=== PATIENT | female | born 1980 | race Caucasian/White ===

== ENCOUNTER 2022-07-19 23:51 | Emergency (ER) | payer MEDICAID ==
[~2022-07-19] VITALS: Ht 152.4 cm; Wt 76.7 kg
[2022-07-20 01:22] LABS: BILIRUBIN,URINE SMALL (NEGATIVE); COLOR,URINE YELLOW (YELLOW); LEUKOCYTE ESTERASE ,URINE SMALL (NEGATIVE); NITRITE, URINE NEGATIVE (NEGATIVE); PROTEIN,URINE 100 mg/dl (NEGATIVE); UGLUCOSE NEGATIVE (NEGATIVE); UROBILINOGEN,URINE 0.2 EU/dL (0.2)
[2022-07-20 01:23] LABS: BACTERIA,URINE Few /HPF (None Seen)
[2022-07-20 01:24] LABS: SQUAMOUS EPITHELIAL CELL,UR Few /HPF (None Seen)
[2022-07-20 01:33] LABS: BASOPHILS # (AUTO) 0.1 K/uL (0.0-0.2); BASOPHILS % (AUTO) 1.2 % (0.0-2.0); EOSINOPHILS % (AUTO) 1.1 % (0.0-6.0); HEMATOCRIT 41 % (33-45); HEMOGLOBIN 13.4 g/dL (11.5-14.8); LYMPHOCYTES # (AUTO) 3.6 K/uL (0.8-4.8); LYMPHOCYTES % (AUTO) 35.2 % (20.0-44.0); MEAN CORPUSCULAR HGB CONC 33 g/dl (31.0-36.0); MEAN CORPUSCULAR VOLUME 87 fL (82-100); MONOCYTES # (AUTO) 0.7 K/uL (0.1-1.30); MONOCYTES % (AUTO) 6.5 % (2.0-12.0); NEUTROPHILS # (AUTO) 5.7 K/uL (1.8-8.9); PLATELET COUNT (AUTO) 234 K/uL (150-450); RED BLOOD CELL COUNT(AUTO) 4.72 MIL/uL (4.0-5.2); WHITE BLOOD COUNT (AUTO) 10.2 K/uL (4.3-11.0)
[2022-07-20 01:51] LABS: ALBUMIN 3.8 g/dL (3.4-5.0); BILIRUBIN,DIRECT 0.1 mg/dL (0.0-0.2); BILIRUBIN,TOTAL 0.3 mg/dL (0.2-1.0); CALCIUM, SERUM 8.5 mg/dL (8.5-10.1); CREATININE 0.8 mg/dL (0.6-1.3); POTASSIUM 3.8 mmol/L (3.5-5.1)
--- NOTE | 2022-07-20 02:16 | NUR ---
US TECH AT BED SIDE
--- NOTE | 2022-07-20 02:36 | NUR ---
Patient discharged to home in stable condition. Written and verbal after care instructions given. Patient verbalizes understanding of instruction.
[2022-07-20 02:38] VITALS: BP 121/68
== END 2022-07-20 02:39 | disposition home or self-care (01) ==
LOC: ER 23:54
DX: O20.0 Threatened abortion (principal); Z3A.00 Weeks of gestation of pregnancy not specified
CPT/HCPCS: 36415; 76856-TC; 80048-TC; 80076-TC; 81001; 84702-TC; 85025-TC; 86850-TC

== ENCOUNTER 2024-06-14 06:43 | Emergency (ER) | payer MEDICAID ==
[~2024-06-14] VITALS: Ht 154.9 cm; Wt 72.6 kg
[2024-06-14] MEDS ORDERED: ONDANSETRON HCL/PF 4 MG/2 ML VIAL ONE (07:06)
[2024-06-14] MEDS ORDERED: MORPHINE SULFATE INJ 4 MG/ML DISP.SYRIN ONE (07:07)
[2024-06-14 07:22] LABS: BASOPHILS % (AUTO) 0.6 % (0.0-2.0); EOSINOPHILS # (AUTO) 0.1 K/uL (0.0-0.7); EOSINOPHILS % (AUTO) 1.5 % (0.0-6.0); HEMATOCRIT 41 % (33-45); LYMPHOCYTES # (AUTO) 2.3 K/uL (0.8-4.8); LYMPHOCYTES % (AUTO) 35.1 % (20.0-44.0); MEAN CORPUSCULAR HEMOGLOBIN 26 PG (26.0-33.0); MEAN CORPUSCULAR HGB CONC 32 g/dl (31.0-36.0); MEAN CORPUSCULAR VOLUME 81 fL (82-100); MONOCYTES # (AUTO) 0.5 K/uL (0.1-1.30); MONOCYTES % (AUTO) 7.4 % (2.0-12.0); NEUTROPHILS # (AUTO) 3.7 K/uL (1.8-8.9); NEUTROPHILS % (AUTO) 55.4 % (43.0-81.0); PLATELET COUNT (AUTO) 331 K/uL (150-450); RED CELL DISTRIBUTION WIDTH 15.9 % (11.5-15.0); WHITE BLOOD COUNT (AUTO) 6.7 K/uL (4.3-11.0)
[2024-06-14] MEDS: MORPHINE SULFATE INJ 2 MG/ML DISP.SYRIN IV ONE (07:24)
[2024-06-14] MEDS: ONDANSETRON HCL/PF - ER 4 MG/2 ML VIAL IV ONE (07:25)
[2024-06-14 08:04] LABS: ALBUMIN 4.1 g/dL (3.4-5.0); BILIRUBIN,TOTAL 0.4 mg/dL (0.2-1.0); CALCIUM, SERUM 9.3 mg/dL (8.5-10.1); CREATININE 0.8 mg/dL (0.6-1.3); POTASSIUM 3.9 mmol/L (3.5-5.1); TOTAL PROTEIN, SERUM 8.3 g/dL (6.4-8.2)
[2024-06-14 08:32] LABS: APPEARANCE,URINE CLOUDY (CLEAR); BILIRUBIN,URINE 1+ (NEGATIVE); BLOOD, URINE NEGATIVE Ery/uL (NEGATIVE); COLOR,URINE YELLOW (YELLOW); KETONES,URINE NEGATIVE (NEGATIVE); LEUKOCYTE ESTERASE ,URINE 1+ (NEGATIVE); NITRITE, URINE NEGATIVE (NEGATIVE); PROTEIN,URINE TRACE mg/dl (NEGATIVE); UGLUCOSE NEGATIVE (NEGATIVE); UROBILINOGEN,URINE 0.2 EU/dL (0.2)
[2024-06-14 08:33] LABS: ADD URINE CULTURE YES; BACTERIA,URINE Few /HPF (None Seen); PREGNANCY TEST URINE QUAL NEGATIVE (NEGATIVE); SQUAMOUS EPITHELIAL CELL,UR Rare /HPF (None Seen)
[2024-06-14] MEDS ORDERED: IOHEXOL-300 100 ML VIAL IV ONE (09:43)
[2024-06-14] MEDS ORDERED: IV NS 0.9% 250 ML IV ONE (09:43)
[2024-06-14] MEDS ORDERED: CT SWABBABLE VALVE TRANS SET 1 EA INFUS.SET MC ONE (09:43)
[2024-06-14] MEDS ORDERED: CEPH500C2 PO (10:59)
[2024-06-14] MEDS ORDERED: IBUP-1490 PO (10:59)
[2024-06-14] MEDS ORDERED: KETOROLAC TROMETHAMINE INJ 30 MG/ML VIAL ONE (11:14)
[2024-06-14] MEDS ORDERED: CEPHALEXIN MONOHYDRATE 500 MG CAPSULE PO ONE (11:15)
[2024-06-14] MEDS: CEPHALEXIN MONOHYDRATE 500 MG CAPSULE PO ONE (11:19)
[2024-06-14] MEDS: KETOROLAC TROMETHAMINE INJ 30 MG/ML VIAL IV ONE (11:24)
[2024-06-14 12:51] VITALS: BP 118/72; TEMP 97.8; O2SAT 98
[2024-06-15] MEDS ORDERED: HYDR-4303 PO (11:09)
== END 2024-06-14 12:51 | disposition home or self-care (01) ==
LOC: ER 06:50
DX: K80.20 Calculus of gallbladder without cholecystitis without obstruction (principal); D25.9 Leiomyoma of uterus, unspecified; R82.81 Pyuria; R10.31 Right lower quadrant pain; R10.11 Right upper quadrant pain
CPT/HCPCS: 99285; 74177; 96374; 76856; 96375; 85025; 87086; 84703; 81001; 36415; 80053; J2270; J1885; J2405 ×2; J7050; Q9967

== ENCOUNTER 2024-06-15 09:44 | Emergency (ER) | payer MEDICAID ==
[~2024-06-15] VITALS: Ht 152.4 cm; Wt 70.3 kg
[~2024-06-15 09:44] MED LIST: CEPH500C2 PO; IBUP-1490 PO
[2024-06-15] MEDS: IV NS 0.9% 1,000 ML BAG IV ONE (10:12)
[2024-06-15 10:22] LABS: BASOPHILS # (AUTO) 0.1 K/uL (0.0-0.2); EOSINOPHILS # (AUTO) 0.1 K/uL (0.0-0.7); EOSINOPHILS % (AUTO) 1.3 % (0.0-6.0); HEMATOCRIT 39 % (33-45); HEMOGLOBIN 12.4 g/dL (11.5-14.8); LYMPHOCYTES # (AUTO) 2.6 K/uL (0.8-4.8); MEAN CORPUSCULAR HEMOGLOBIN 26 PG (26.0-33.0); MEAN CORPUSCULAR HGB CONC 32 g/dl (31.0-36.0); MEAN CORPUSCULAR VOLUME 82 fL (82-100); MONOCYTES # (AUTO) 0.4 K/uL (0.1-1.30); MONOCYTES % (AUTO) 6.4 % (2.0-12.0); NEUTROPHILS # (AUTO) 3.6 K/uL (1.8-8.9); NEUTROPHILS % (AUTO) 53.3 % (43.0-81.0); PLATELET COUNT (AUTO) 307 K/uL (150-450); RED BLOOD CELL COUNT(AUTO) 4.74 MIL/uL (4.0-5.2); RED CELL DISTRIBUTION WIDTH 15.6 % (11.5-15.0); WHITE BLOOD COUNT (AUTO) 6.8 K/uL (4.3-11.0)
[2024-06-15 10:29] LABS: APPEARANCE,URINE CLEAR (CLEAR); BILIRUBIN,URINE NEGATIVE (NEGATIVE); BLOOD, URINE NEGATIVE Ery/uL (NEGATIVE); COLOR,URINE YELLOW (YELLOW); KETONES,URINE NEGATIVE (NEGATIVE); LEUKOCYTE ESTERASE ,URINE 2+ (NEGATIVE); NITRITE, URINE NEGATIVE (NEGATIVE); PREGNANCY TEST URINE QUAL NEGATIVE (NEGATIVE); PROTEIN,URINE NEGATIVE (NEGATIVE); UGLUCOSE NEGATIVE (NEGATIVE); UROBILINOGEN,URINE 0.2 EU/dL (0.2)
[2024-06-15 10:30] LABS: ADD URINE CULTURE YES; BACTERIA,URINE Few /HPF (None Seen); SQUAMOUS EPITHELIAL CELL,UR Rare /HPF (None Seen)
[2024-06-15 10:44] LABS: ALBUMIN 4.1 g/dL (3.4-5.0); BILIRUBIN,DIRECT 0.1 mg/dL (0.0-0.2); BILIRUBIN,TOTAL 0.5 mg/dL (0.2-1.0); CREATININE 0.7 mg/dL (0.6-1.3); POTASSIUM 4.2 mmol/L (3.5-5.1); TOTAL PROTEIN, SERUM 8.3 g/dL (6.4-8.2)
[2024-06-15] MEDS ORDERED: HYDR-4303 PO (11:09)
[2024-06-15] MEDS ORDERED: ONDANSETRON HCL/PF 4 MG/2 ML VIAL ONE (11:18)
[2024-06-15] MEDS ORDERED: KETOROLAC TROMETHAMINE 15 MG/ML VIAL ONE (11:18)
[2024-06-15] MEDS ORDERED: HYDROCODONE/APAP 5/325MG TABLET ONE (11:19)
[2024-06-15] MEDS ORDERED: CYCLOBENZAPRINE 10 MG TABLET ONE (11:19)
[2024-06-15] MEDS: KETOROLAC TROMETHAMINE 15 MG/ML VIAL IV ONE (11:30)
[2024-06-15] MEDS: ONDANSETRON HCL/PF 4 MG/2 ML VIAL IV ONE (11:31)
[2024-06-15] MEDS: CYCLOBENZAPRINE 10 MG TABLET PO ONE (11:31)
[2024-06-15] MEDS: LIDOCAINE 5% (PATCH) 1 EA PATCH TP SCH (11:32)
[2024-06-15] MEDS: HYDROCODONE/APAP 5/325MG TABLET PO ONE (11:32)
[2024-06-15 11:35] VITALS: BP 138/82; TEMP 98; O2SAT 98
== END 2024-06-15 11:36 | disposition home or self-care (01) ==
LOC: ER 09:47
DX: D25.9 Leiomyoma of uterus, unspecified (principal); K80.20 Calculus of gallbladder without cholecystitis without obstruction; N39.0 Urinary tract infection, site not specified; R10.31 Right lower quadrant pain; R11.2 Nausea with vomiting, unspecified
CPT/HCPCS: 99284; 96374; 96361; 96375; 85025; 80048; 83690; 80076; 84703; 81001; 36415; J2405; J7030; J1885

== ENCOUNTER 2025-04-03 13:48 | Emergency (ER) | payer MEDICAID ==
[~2025-04-03] VITALS: Ht 152.4 cm; Wt 68.0 kg
[~2025-04-03 13:48] MED LIST changes: +HYDR-4303 PO
[2025-04-03 14:03] VITALS: TEMP 98.4
[2025-04-03 14:25] VITALS: BP 123/78
[2025-04-03] MEDS ORDERED: IBUP-1490 PO (15:22)
[2025-04-03 15:29] VITALS: O2SAT 98
== END 2025-04-03 15:29 | disposition home or self-care (01) ==
LOC: ER 13:51
DX: S93.692A Other sprain of left foot, initial encounter (principal); W01.0XXA Fall on same level from slipping, tripping and stumbling without subsequent striking against object, initial encounter; Y93.89 Activity, other specified; Y92.89 Other specified places as the place of occurrence of the external cause; Y99.8 Other external cause status
CPT/HCPCS: 73630-TC